=== PATIENT | female | born 1945 | race Caucasian/White ===

== ENCOUNTER 2016-07-24 11:40 | Outpatient (CLI) | payer MEDICARE | END 2016-07-24 11:41 | DX: N39.0 Urinary tract infection, site not specified (principal) ==

== ENCOUNTER 2017-01-18 19:17 | Emergency (ER) | payer MEDICARE ==
[2017-01-18 20:01] LABS: BILIRUBIN,URINE NEGATIVE (NEGATIVE); PH,URINE 5.5 PH (5.0-7.5)
[2017-01-18 20:03] LABS: UA w/ MICROSCOPIC CHARGE YES
[2017-01-18 20:12] LABS: UR CULTURE IF IND INDICATED; WBC,URINE 0-3 /HPF (0-5)
[2017-01-18 20:17] LABS: BASOPHILS # (AUTO) 0.1 10^3/uL (0.0-0.1); BASOPHILS % (AUTO) 0.8 %; EOSINOPHILS # (AUTO) 0.2 10^3/uL (0.0-0.7); EOSINOPHILS % (AUTO) 2.1 %; HCT - HEMATOCRIT 38.8 % (37.0-47.0); HGB - HEMOGLOBIN 13.2 g/dL (12.0-16.0); LYMPHOCYTES # (AUTO) 3.3 10^3/uL (1.5-3.5); MEAN CORPUSCULAR VOLUME 88.2 fL (81.0-99.0); MEAN PLATELET VOLUME 8.5 fL (7.9-10.8); MONOCYTES # (AUTO) 0.7 10^3/uL (0.0-1.0); MONOCYTES % (AUTO) 8.9 %; NEUTROPHILS % (AUTO) 48.2 %; RED CELL DISTRIBUTION WIDTH 13.4 % (12.0-15.0); UNCORRECTED WHITE BLOOD COUNT 8.4 x10^3/uL; WHITE BLOOD COUNT 8.4 x10^3/uL (4.8-10.8)
[2017-01-18 20:30] LABS: ALBUMIN/GLOBULIN RATIO 1.3 (1.0-2.2); BILIRUBIN,TOTAL 0.4 mg/dL (0.2-1.0); CALCIUM 9.1 mg/dL (8.5-10.3); CREATININE 0.6 mg/dL (0.4-1.0); POTASSIUM 3.5 mmol/L (3.5-5.0); TOTAL PROTEIN 7.2 g/dL (6.7-8.2)
[2017-01-18] MEDS ORDERED: IOPAMIDOL-300 100 ML VIAL IVP ONE (21:25)
--- NOTE | 2017-01-18 22:06 | ED Physician Documentation ---
PD HPI ABD PAIN - Stated complaint Stated Complaint: RLQ AB PX - Chief complaint Chief Complaint: Abd Pain - History obtained from History obtained from: Patient, Family - History of Present Illness Timing - onset: Today Timing - details: Gradual onset, Still present Quality: Cramping, Aching Location: RLQ Worsened by: Position, Palpation Associated symptoms: Fever, Nausea, Diarrhea, Loss of appetite. No: Vomiting, Hematemesis, Constipation, Melena, Near syncope / syncope Similar symptoms before: Has not had sx before Recently seen: Not recently seen - Additional information Additional information: Patient is a 71 year old female with no significant past medical history who is presenting to the emergency department for abdominal pain. according to the patient the pain started earlier today in her right lower quadrant. patient states that she had nausea, but no vomiting and one episode of diarrhea. patient also reports chills. Patient denies sick contacts, or recent travel. Review of Systems Constitutional: reports: Chills. denies: Myalgias Eyes: denies: Decreased vision Ears: denies: Ear pain, Drainage/discharge Nose: denies: Rhinorrhea / runny nose, Congestion Throat: denies: Dental pain / toothache, Sore throat Cardiac: denies: Chest pain / pressure Respiratory: denies: Cough, Wheezing GI: reports: Abdominal Pain, Nausea, Diarrhea. denies: Vomiting : denies: Dysuria, Frequency, Hesitancy Skin: denies: Rash, Lesions Neurologic: denies: Generalized weakness, Focal weakness Immunocompromised: denies: Immunocompromised PD PAST MEDICAL HISTORY - Past Medical History Cardiovascular: Hypertension Respiratory: Other Neuro: None DATABASE REPORT WRITER: None : None HEENT: None Psych: Depression, Anxiety Musculoskeletal: Osteoarthritis Derm: None - Past Surgical History General: Cholecystectomy, Colonoscopy - Present Medications Home Medications: Ambulatory Orders Medication Instructions Recorded Confirmed Cyclobenzaprine [Flexeril] 10 mg PO TID PRN #20 tablet 04/14/16 Ibuprofen [Motrin] 800 mg PO Q8H PRN #20 tablet 04/14/16 Dicyclomine [Bentyl] 10 mg PO QID #14 capsule 01/18/17 Ondansetron Odt [Zofran] 4 mg TL Q6H PRN #14 tablet 01/18/17 - Allergies Allergies/Adverse Reactions: Allergies Allergy/AdvReac Type Severity Reaction Status Date / Time amoxicillin trihydrate * Allergy Rash Verified 01/18/17 19:34 [From Augmentin] potassium clavulanate * Allergy Rash Verified 01/18/17 19:34 [From Augmentin] - Social History Does the pt smoke?: No Smoking Status: Never smoker Does the pt drink ETOH?: No Does the pt have substance abuse?: No - Immunizations Immunizations are current?: Yes - POLST Patient has POLST: No PD ED PE NORMAL - Vitals Vital signs reviewed: Yes - General General: Alert and oriented X 3, No acute distress - HEENT HEENT: Atraumatic, PERRL - Neck Neck: Supple, no meningeal sign - Cardiac Cardiac: RRR, No murmur - Respiratory Respiratory: No respiratory distress - Derm Derm: Normal color, Warm and dry, No rash - Extremities Extremities: No deformity - Neuro Neuro: Alert and oriented X 3, No motor deficit, No sensory deficit, Normal speech - Psych Psych: Normal mood, Normal affect PD ED PE EXPANDED - HEENT HEENT: Dry mucous membranes - Abdomen Abdomen: Tender to palpation, RLQ. No: Rebound, Guarding Results - Vitals Vitals: Vital Signs - 24 hr 01/18/17 01/18/17 01/18/17 19:32 19:45 21:36 Temperature 36.0 C L 36.3 C L 36.2 C L Heart Rate 67 75 57 L Respiratory 16 15 16 Rate Blood Pressure 163/79 H 196/85 H 176/72 H O2 Saturation 97 98 96 Oxygen O2 Source Room air - Labs Labs: Laboratory Tests 01/18/17 01/18/17 01/18/17 17:45 20:05 20:05 WBC 8.4 RBC 4.40 Hgb 13.2 Hct 38.8 MCV 88.2 MCH 30.0 MCHC 34.0 RDW 13.4 Plt Count 311 MPV 8.5 Neut # 4.0 Lymph # 3.3 [place] # 0.7 Eos # 0.2 Baso # 0.1 Absolute Nucleated RBC 0.00 Nucleated RBCs 0.0 Sodium 140 Potassium 3.5 Chloride 106 Carbon Dioxide 25 Anion Gap 9.0 BUN 14 Creatinine 0.6 Estimated GFR (MDRD) 99 Glucose 129 H Calcium 9.1 Total Bilirubin 0.4 AST 19 ALT 22 Alkaline Phosphatase 103 Total Protein 7.2 Albumin 4.1 Globulin 3.1 Albumin/Globulin Ratio 1.3 Lipase 53 H Urine Color YELLOW Urine Clarity HAZY Urine pH 5.5 Ur Specific [place] 1.020 Urine Protein NEGATIVE Urine Glucose (UA) NEGATIVE Urine Ketones NEGATIVE Urine Occult Blood TRACE-INTA Urine Nitrite NEGATIVE Urine Bilirubin NEGATIVE Urine Urobilinogen 0.2 (NORMAL) Ur Leukocyte Esterase TRACE H Urine RBC 0-5 Urine WBC 0-3 Ur Squamous Epith Cells FEW Squamous Urine Bacteria Rare Ur Microscopic Review INDICATED Urine Culture Comments INDICATED - Rads (name of study) ct abd pelvis Radiology: Final report received (diverticulosis but no diverticulitis, no appendicitis) PD MEDICAL DECISION MAKING - ED course Complexity details: reviewed old records, reviewed results, re-evaluated patient , considered differential, d/w patient, d/w family ED course: Patient was seen and examined at bedside. IV access was gained and labs were drawn. Imaging was ordered. When patient returned the results were reviewed. there no acute abnormalities on CT. patient was educated on her findings. patient required no further work up and was stable for discharge with outpatient follow up. Departure - Departure Disposition: 01 Home, Self Care Clinical Impression: Gastroenteritis Condition: Good Instructions: ED Gastroenteritis Viral Follow-Up: Talisha Meade MD [Primary Care Provider] - As Needed Prescriptions: Dicyclomine [Bentyl] 10 mg PO QID #14 capsule Ondansetron Odt [Zofran] 4 mg TL Q6H PRN #14 tablet PRN Reason: Nausea / Vomiting Comments: Your diagnostics today were within normal limits. Your symptoms are likely being caused by a gastroenteritis which should be self limited and get better in the next few days. Make sure you stay well hydrated with water and electrolyte solutions. You should follow up with your pmd if your symptoms persist. You may return to the emergency department at any time for new, worsening or uncontrollable symptoms.
--- NOTE | 2017-01-18 22:13 | CT Preliminary Report ---
Exam: CT Abdomen/Pelvis W/ IMPRESSION: 1. There is distal colon diverticulosis. No evidence of diverticulitis. 2. No evidence of appendicitis or bowel obstruction. 3. There is hepatic steatosis. No acute solid abdominal organ abnormalities are seen. [facility] SITE ID: [id number]
--- NOTE | 2017-01-18 22:15 | CT Report ---
EXAM: CT ABDOMEN AND PELVIS EXAM DATE: 01/18/2017 09:36 PM. CLINICAL HISTORY: Rlq pain, fever, chills. COMPARISONS: None. TECHNIQUE: Routine helical CT imaging was performed through the abdomen and pelvis. IV contrast: Yes. Enteric contrast: No. Reconstructions: Coronal and sagittal. In accordance with CT protocol optimization, one or more of the following dose reduction techniques w ere utilized for this exam: automated exposure control, adjustment of mA and/or KV based on patient s ize, or use of iterative reconstructive technique. FINDINGS: Lung Bases: Unremarkable. Liver: There is hepatic steatosis. Gallbladder/Bile Ducts: The gallbladder is surgically absent. No significant bile duct dilatation. Spleen: Normal. Pancreas: Normal. Adrenal Glands: Normal. Kidneys: Normal. No masses or hydronephrosis. Peritoneal Cavity/Bowel: No dilated or thick-walled bowel is seen. There is distal colon diverticulos is without evidence of diverticulitis. The appendix is well visualized and normal. No enlarged mesent raheem or retroperitoneal lymph nodes. No intraperitoneal free air or free fluid. Pelvic Organs: Normal. The bladder and visualized pelvic organs are within normal limits. Vasculature: No aneurysms or other significant abnormality. Bones: No significant abnormality. Other: None. IMPRESSION: 1. There is distal colon diverticulosis. No evidence of diverticulitis. 2. No evidence of appendicitis or bowel obstruction. 3. There is hepatic steatosis. No acute solid abdominal organ abnormalities are seen. [facility] Referring Provider Line: [phone] SITE ID: [id number]
[2017-01-18 22:42] VITALS: BP 128/71
== END 2017-01-18 22:30 | disposition home or self-care (01) ==
LOC: ED 19:17
DX: K52.9 Noninfective gastroenteritis and colitis, unspecified (principal); I10 Essential (primary) hypertension; M19.90 Unspecified osteoarthritis, unspecified site
CPT/HCPCS: 36415; 74177; 80053; 81001; 83690; 85025; 87086; 99283; 99284; Q9967; 81003

== ENCOUNTER 2017-01-30 09:55 | Outpatient (CLI) | payer MEDICARE ==
[2017-01-30 13:23] LABS: AMYLASE 77 U/L (28-100); LIPASE 46 U/L (22-51)
== END 2017-01-30 09:56 | disposition home or self-care (01) ==
LOC: LAB.WCP 09:55
PROVIDERS: ATTEND Family Medicine
DX: R74.8 Abnormal levels of other serum enzymes (principal); R10.31 Right lower quadrant pain
CPT/HCPCS: 36415; 82150; 83690; 87086

== ENCOUNTER 2017-02-01 12:57 | Outpatient (CLI) | payer MEDICARE ==
--- NOTE | 2017-02-01 14:08 | Ultrasound Report ---
EXAM: RENAL ULTRASOUND EXAM DATE: 02/01/2017 01:52 PM. CLINICAL HISTORY: Right flank pain COMPARISON: None. TECHNIQUE: Real-time scanning was performed with static images obtained. FINDINGS: Right Kidney: 10.3 x 5.5 x 5.2 cm. Minimal pelviectasis. Left Kidney: 10.4 x 4.8 x 4.2 cm. Normal echotexture with no stones, contour-deforming masses, or hyd ronephrosis. Bladder: Bilateral jets seen. The prevoid bladder volume was 332 cc. The postvoid bladder volume was 49 cc. Mildly increased echogenicity of the liver consistent with fatty infiltration. IMPRESSION: 1. Minimal right pelviectasis, otherwise unremarkable sonographic appearance of the kidneys. 2. Fatty infiltration of the liver. [facility] Referring Provider Line: [phone] SITE ID: [id number]
== END 2017-02-01 12:58 | disposition home or self-care (01) ==
LOC: DI 12:57
PROVIDERS: ATTEND Family Medicine
DX: R10.31 Right lower quadrant pain (principal); K76.0 Fatty (change of) liver, not elsewhere classified
CPT/HCPCS: 76770

== ENCOUNTER 2018-03-20 07:06 | Outpatient (CLI) | payer MEDICARE ==
[2018-03-20 14:40] LABS: BASOPHILS # (AUTO) 0.1 10^3/uL (0.0-0.1); BASOPHILS % (AUTO) 0.8 %; EOSINOPHILS # (AUTO) 0.1 10^3/uL (0.0-0.7); EOSINOPHILS % (AUTO) 1.5 %; HGB - HEMOGLOBIN 13.4 g/dL (12.0-16.0); LYMPHOCYTES % (AUTO) 28.6 %; MEAN CORPUSCULAR HEMOGLOBIN 29.7 pg (27.0-31.0); MEAN CORPUSCULAR HGB CONC 33.7 g/dL (32.0-36.0); MEAN CORPUSCULAR VOLUME 88.2 fL (81.0-99.0); MONOCYTES # (AUTO) 0.6 10^3/uL (0.0-1.0); MONOCYTES % (AUTO) 8.1 %; NEUTROPHILS # (AUTO) 4.3 10^3/uL (1.5-6.6); PLT - PLATELET COUNT 361 10^3/uL (130-450); RED BLOOD COUNT 4.52 10^6/uL (4.20-5.40); RED CELL DISTRIBUTION WIDTH 13.9 % (12.0-15.0)
[2018-03-20 15:35] LABS: ALBUMIN 4.2 g/dL (3.2-5.5); ALBUMIN/GLOBULIN RATIO 1.3 (1.0-2.2); ALKALINE PHOSPHATASE 107 IU/L (42-121); ALT ALANINE AMINOTRANSFERASE 21 IU/L (10-60); AST ASPARTATE AMINOTRANSFERASE 20 IU/L (10-42); BILIRUBIN,TOTAL 0.4 mg/dL (0.2-1.0); BUN - BLOOD UREA NITROGEN 13 mg/dL (6-20); CALCIUM 9.1 mg/dL (8.5-10.3); CARBON DIOXIDE - CO2 24 mmol/L (21-32); CHLORIDE 102 mmol/L (101-111); CHOL/HDL RATIO 3.4 (<4.4); CHOLESTEROL 166 mg/dL; CREATININE 0.7 mg/dL (0.4-1.0); GFR - MDRD 83 (>89); GLUCOSE 108 mg/dL (70-100); HDL CHOLESTEROL 49 mg/dL; LDL CHOLESTEROL,CALCULATED 79 mg/dL; LDL/HDL RATIO 1.6 (<4.4); SODIUM 137 mmol/L (135-145); TOTAL PROTEIN 7.5 g/dL (6.7-8.2); VLDL CHOLESTEROL 38 mg/dL
[2018-03-20 16:18] LABS: HB2 TOTAL 14.2 g/dL; HEMOGLOBIN A1C 0.63 g/dL; HEMOGLOBIN A1C % 6.2 % (4.6-6.2)
== END 2018-03-20 07:07 | disposition home or self-care (01) ==
LOC: LAB.WCP 07:06
PROVIDERS: ATTEND Family Medicine
DX: I10 Essential (primary) hypertension (principal); E78.5 Hyperlipidemia, unspecified; R73.9 Hyperglycemia, unspecified; R94.6 Abnormal results of thyroid function studies
CPT/HCPCS: 36415; 80053; 80061; 83036; 83721; 84443; 85025

== ENCOUNTER 2018-04-08 13:42 | Outpatient (CLI) | payer MEDICARE ==
[2018-04-08] MEDS ORDERED: REGADENOSON 0.4 MG/5 ML SYRINGE IVP ONE ×2 (14:54→16:38)
--- NOTE | 2018-04-08 18:03 | CARDIAC PROCEDURE NOTE ---
DATE OF SERVICE: 04/08/2018 Physician: Sahara Lyon MD, [facility] INDICATION: Left bundle branch block, chest pain. CARDIAC RISK FACTORS: Family history of heart disease, hyperlipidemia, hypertension, postmenopausal status. SUMMARY: After signing informed consent, the patient underwent a pharmaceutical stress test using Lexiscan and nuclear myocardial perfusion imaging. Resting heart rate 63, peak heart rate 99. Resting blood pressure 160/80. Peak blood pressure 130/70, which recovered to 140/65 before discharge. Lexiscan was infused per protocol. The patient developed chest pressure that was different than the feeling she has ever had before, brief nausea, flushing, headache and shortness of breath. All symptoms subsided spontaneously by 4-5 minutes. RESTING EKG: Normal sinus rhythm, left bundle branch block. EKG AT PEAK: Similar left bundle branch block, therefore cannot comment on ST segments or T waves. SUMMARY: 1. Indeterminate EKG changes due to underlying left bundle branch block, during this pharmaceutical stress test. 2. Nuclear images reported separately to go up and before. cc: Talisha Meade MD TD: 04/08/2018 16:53 MTDD
--- NOTE | 2018-04-09 09:39 | Nuclear Medicine Report ---
Reason: LT BUNDLE BRANCH BLOCK, CHEST PAIN Procedure Date: 04/08/2018 Accession Number: [id number] / [id number] Procedure: NM - Myocardial Perfusion STR/RST CPT Code: FULL RESULT: EXAM: SINGLE-ISOTOPE PHARMACOLOGICAL STRESS TEST WITH REGADENOSON. SINGLE-ISOTOPE AND ONE-DAY REST/STRESS MYOCARDIAL PERFUSION SCANS WITH TOMOGRAPHIC IMAGING, QUANTITATIVE ANALYSIS, WALL MOTION ANALYSIS AND CALCULATION OF EJECTION FRACTION. EXAM DATE: 04/08/2018 05:31 PM. CLINICAL HISTORY: LT BUNDLE BRANCH BLOCK, CHEST PAIN. COMPARISON: None available. TECHNIQUE: After the intravenous administration of 10 mCi of Tc-99m sestamibi, a rest myocardial perfusion scan was done with tomography. Motion correction was applied when appropriate. After an appropriate delay, pharmacological stress was performed with the infusion of 0.4 mg regadenoson per protocol. According to protocol, 43.2 mCi of Tc-99m sestamibi was injected for stress myocardial perfusion scan. Motion correction was applied when appropriate. Gated tomographic images were obtained for wall motion analysis and computation of left ventricular ejection fraction. FINDINGS: No convincing fixed or reversible perfusion defects are evident. There appears to be breast attenuation artifact in the distal anteroseptal wall. Wall motion analysis demonstrates no focal wall motion abnormality. The left ventricular end-diastolic volume is 48 cc. The left ventricular end-systolic volume is 12 cc. The left ventricular ejection fraction is calculated to be 75%. IMPRESSION: 1. No scintigraphic findings to indicate myocardial ischemia. Negative for infarct. 2. Left ventricular ejection fraction of 75%. 3. Normal segmental and global wall motion. 4. Normal left ventricular cavity size, no change with stress. [facility] ADDENDUM: 04/09/18 10:50 Computer analysis: Summed stress score 4 Summed rest score 4 Summed difference score 0 Based on computer analysis, mildly abnormal study with no ischemia.
== END 2018-04-08 13:43 | disposition home or self-care (01) ==
LOC: DI 13:42
PROVIDERS: ATTEND Family Medicine
DX: I44.7 Left bundle-branch block, unspecified (principal); R07.9 Chest pain, unspecified; Z82.49 Family history of ischemic heart disease and other diseases of the circulatory system; E78.5 Hyperlipidemia, unspecified; I10 Essential (primary) hypertension; Z78.0 Asymptomatic menopausal state
CPT/HCPCS: 78452; 93017; A9500

== ENCOUNTER 2018-04-27 10:28 | Outpatient (CLI) | payer MEDICARE | END 2018-04-27 10:29 | disposition home or self-care (01) | LOC: LAB.WCP 10:28 | PROVIDERS: ATTEND Family Medicine | DX: R41.3 Other amnesia (principal) | CPT/HCPCS: 36415; 82607; 82746 ==

== ENCOUNTER 2018-06-23 09:33 | Outpatient (CLI) | payer MEDICARE | END 2018-06-23 09:34 | disposition home or self-care (01) | LOC: SC 09:33 | PROVIDERS: ATTEND Internal Medicine Pulmonary Disease | DX: R06.81 Apnea, not elsewhere classified (principal); G47.10 Hypersomnia, unspecified; R06.83 Snoring; G47.8 Other sleep disorders | CPT/HCPCS: 99203; G0463; 99212 ==

== ENCOUNTER → 2018-07-11 | Outpatient (CLI) | payer MEDICARE | LOC: SC 19:30 | PROVIDERS: ATTEND Internal Medicine Pulmonary Disease | DX: G47.33 Obstructive sleep apnea (adult) (pediatric) (principal) | CPT/HCPCS: G0399 ×2; 95806 ==

== ENCOUNTER 2018-08-12 08:14 | Outpatient (CLI) | payer MEDICARE | END 2018-08-12 08:15 | disposition home or self-care (01) | LOC: SC 08:14 | PROVIDERS: ATTEND Nurse Practitioner Family | DX: G47.33 Obstructive sleep apnea (adult) (pediatric) (principal) | CPT/HCPCS: 99215; G0463; 99212 ==

== ENCOUNTER 2018-12-14 08:00 | Outpatient (CLI) | payer MEDICARE ==
[2018-12-14 12:34] LABS: BASOPHILS # (AUTO) 0.1 10^3/uL (0.0-0.1); BASOPHILS % (AUTO) 0.9 %; EOSINOPHILS # (AUTO) 0.1 10^3/uL (0.0-0.7); EOSINOPHILS % (AUTO) 1.5 %; HGB - HEMOGLOBIN 13.7 g/dL (12.0-16.0); LYMPHOCYTES # (AUTO) 2.2 10^3/uL (1.5-3.5); LYMPHOCYTES % (AUTO) 34.7 %; MEAN CORPUSCULAR HEMOGLOBIN 29.5 pg (27.0-31.0); MEAN CORPUSCULAR HGB CONC 32.2 g/dL (32.0-36.0); MEAN CORPUSCULAR VOLUME 91.6 fL (81.0-99.0); MEAN PLATELET VOLUME 10.1 fL (7.9-10.8); MONOCYTES # (AUTO) 0.6 10^3/uL (0.0-1.0); NEUTROPHILS # (AUTO) 3.5 10^3/uL (1.5-6.6); NEUTROPHILS % (AUTO) 53.6 %; PLT - PLATELET COUNT 381 10^3/uL (130-450); RED BLOOD COUNT 4.64 10^6/uL (4.20-5.40); RED CELL DISTRIBUTION WIDTH 13.1 % (12.0-15.0); WHITE BLOOD COUNT 6.5 x10^3/uL (4.8-10.8)
[2018-12-14 12:59] LABS: ALBUMIN 4.2 g/dL (3.2-5.5); ALBUMIN/GLOBULIN RATIO 1.3 (1.0-2.2); ALKALINE PHOSPHATASE 106 IU/L (42-121); ALT ALANINE AMINOTRANSFERASE 23 IU/L (10-60); AST ASPARTATE AMINOTRANSFERASE 18 IU/L (10-42); BILIRUBIN,TOTAL 0.5 mg/dL (0.2-1.0); BUN - BLOOD UREA NITROGEN 12 mg/dL (6-20); CALCIUM 9.2 mg/dL (8.5-10.3); CARBON DIOXIDE - CO2 23 mmol/L (21-32); CHLORIDE 105 mmol/L (101-111); CHOL/HDL RATIO 4.4 (<4.4); CHOLESTEROL 186 mg/dL; CREATININE 0.8 mg/dL (0.4-1.0); GFR - MDRD 71 (>89); GLUCOSE 104 mg/dL (70-100); HDL CHOLESTEROL 42 mg/dL; LDL CHOLESTEROL,CALCULATED 103 mg/dL; LDL/HDL RATIO 2.5 (<4.4); SODIUM 138 mmol/L (135-145); TOTAL PROTEIN 7.5 g/dL (6.7-8.2); VLDL CHOLESTEROL 41 mg/dL
[2018-12-14 13:23] LABS: HB2 TOTAL 15.5 g/dL; HEMOGLOBIN A1C 0.71 g/dL; HEMOGLOBIN A1C % 6.3 % (4.6-6.2)
== END 2018-12-14 23:59 | disposition home or self-care (01) ==
LOC: LAB.WCP 08:00
PROVIDERS: ATTEND Family Medicine
DX: I10 Essential (primary) hypertension (principal); E87.5 Hyperkalemia; R73.9 Hyperglycemia, unspecified; R94.6 Abnormal results of thyroid function studies
CPT/HCPCS: 36415; 80053; 80061; 83036; 83721; 84443; 85025

== ENCOUNTER 2019-03-30 08:00 | Outpatient (CLI) | payer MEDICARE ==
[2019-03-30 12:20] LABS: BASOPHILS # (AUTO) 0.1 10^3/uL (0.0-0.1); BASOPHILS % (AUTO) 0.9 %; EOSINOPHILS # (AUTO) 0.1 10^3/uL (0.0-0.7); EOSINOPHILS % (AUTO) 1.5 %; HGB - HEMOGLOBIN 13.2 g/dL (12.0-16.0); LYMPHOCYTES # (AUTO) 2.2 10^3/uL (1.5-3.5); LYMPHOCYTES % (AUTO) 32.4 %; MEAN CORPUSCULAR HEMOGLOBIN 29.3 pg (27.0-31.0); MEAN CORPUSCULAR HGB CONC 31.7 g/dL (32.0-36.0); MEAN CORPUSCULAR VOLUME 92.5 fL (81.0-99.0); MEAN PLATELET VOLUME 10.3 fL (7.9-10.8); MONOCYTES # (AUTO) 0.5 10^3/uL (0.0-1.0); MONOCYTES % (AUTO) 7.3 %; NEUTROPHILS # (AUTO) 3.9 10^3/uL (1.5-6.6); NEUTROPHILS % (AUTO) 57.6 %; PLT - PLATELET COUNT 340 10^3/uL (130-450); RED BLOOD COUNT 4.51 10^6/uL (4.20-5.40); RED CELL DISTRIBUTION WIDTH 13.3 % (12.0-15.0); WHITE BLOOD COUNT 6.8 x10^3/uL (4.8-10.8)
[2019-03-30 12:42] LABS: HB2 TOTAL 13.7 g/dL; HEMOGLOBIN A1C 0.61 g/dL; HEMOGLOBIN A1C % 6.2 % (4.6-6.2)
[2019-03-30 12:45] LABS: ALBUMIN 4.2 g/dL (3.2-5.5); ALBUMIN/GLOBULIN RATIO 1.4 (1.0-2.2); ALKALINE PHOSPHATASE 94 IU/L (42-121); ALT ALANINE AMINOTRANSFERASE 16 IU/L (10-60); AST ASPARTATE AMINOTRANSFERASE 14 IU/L (10-42); BILIRUBIN,TOTAL 0.6 mg/dL (0.2-1.0); BUN - BLOOD UREA NITROGEN 13 mg/dL (6-20); CARBON DIOXIDE - CO2 27 mmol/L (21-32); CHLORIDE 104 mmol/L (101-111); CHOL/HDL RATIO 3.6 (<4.4); CHOLESTEROL 154 mg/dL; CREATININE 0.7 mg/dL (0.4-1.0); GFR - MDRD 82 (>89); GLUCOSE 101 mg/dL (70-100); HDL CHOLESTEROL 43 mg/dL; LDL CHOLESTEROL,CALCULATED 75 mg/dL; LDL/HDL RATIO 1.7 (<4.4); SODIUM 140 mmol/L (135-145); TOTAL PROTEIN 7.2 g/dL (6.7-8.2); VLDL CHOLESTEROL 36 mg/dL
== END 2019-03-30 23:59 | disposition home or self-care (01) ==
LOC: LAB.WCP 08:00
PROVIDERS: ATTEND Physician Assistant
DX: E78.5 Hyperlipidemia, unspecified (principal); R73.9 Hyperglycemia, unspecified; I10 Essential (primary) hypertension
CPT/HCPCS: 36415; 80053; 80061; 83036; 83721; 85025

== ENCOUNTER 2019-04-16 10:09 | Outpatient (CLI) | payer MEDICARE ==
--- NOTE | 2019-04-19 10:05 | DEXA Report ---
Reason: POSTMENOPAUSAL Procedure Date: 04/16/2019 Accession Number: [id number] / [id number] Procedure: DEX - Dexa Spine and/or Hip CPT Code: Final Report FULL RESULT: EXAM: Dexa Spine and/or Hip DATE: 04/16/2019 11:52 AM CLINICAL HISTORY: POSTMENOPAUSAL TECHNIQUE: Dual energy x-ray absorptiometry (DXA) was performed on a Skydeck System. Regions measured are the AP Spine, femoral neck, and if needed forearm. COMPARISON: None. In accordance with the International Society for Clinical Densitometry (ISCD) guidelines, data from previous exams may be reanalyzed using current recommendations and techniques. This is done to allow a more accurate basis for comparison with the current study. FINDINGS: The data for the lumbar spine is as follows: BMD (g/cm/cm) T-SCORE Z-SCORE REGION L1 0.868 -2.2 -0.8 L2 0.955 -2.0 -0.7 L3 1.076 -1.0 0.3 L4 1.237 0.3 1.7 TOTAL 1.050 -1.6 -0.2 NOTE: All evaluable vertebrae are used for classification The data for the hip is as follows: BMD (g/cm/cm) T-SCORE Z-SCORE REGION Neck 0.772 -1.9 -0.3 TOTAL 0.934 -0.6 0.7 NOTE: The femoral neck or total proximal femur, whichever is lowest, is used for classification. IMPRESSION: THE WHO CLASSIFICATION BASED ON THE INTERNATIONAL REFERENCE STANDARD IS OSTEOPENIA. THE FRACTURE RISK IS INCREASED. RECOMMENDATION: Patients with diagnosis of osteoporosis or osteopenia should have regular bone mineral density assessment. For those eligible for Medicare, routine testing is allowed once every 2 years. Testing frequency can be increased for patients who have rapidly progressing disease or for those who are receiving medical therapy to restore bone mass. COMMENT: World Health Organization (WHO) definitions for osteoporosis and osteopenia: NORMAL BMD: T-score at -1.0 or higher, fracture risk is low OSTEOPENIA BMD: T-score between -1.0 and -2.5, fracture risk is increased. OSTEOPOROSIS BMD: T-score at -2.5 or lower, fracture risk is high. National Osteoporosis Foundation recommends: 1. Obtain adequate dietary calcium (at least 1200 mg per day) and vitamin D (400-800 international units per day). 2. Participate, as appropriate, in regular weightbearing and muscle-strengthening exercise. 3. Avoid tobacco use and reduce alcohol and caffeine intake. 4. For more detailed information see the website at www.NOF.org.
== END 2019-04-16 10:10 | disposition home or self-care (01) ==
LOC: DI 10:09
PROVIDERS: ATTEND Physician Assistant
DX: M85.89 Other specified disorders of bone density and structure, multiple sites (principal)
CPT/HCPCS: 77080

== ENCOUNTER 2019-05-12 12:50 | Outpatient (CLI) | payer MEDICARE ==
[2019-05-12 13:41] VITALS: BP 150/72
--- NOTE | 2019-05-12 13:41 | SLEEP CARE CONSULTATION ---
Information from patient questionnaire entered by Galina Torres. I have reviewed and concur with the information entered by Galina Torres. This document represents the service I personally performed and the decisions made by me, Rocio Vieira, RN, MSN, SALES SECRETARY. History of Present Illness Previous diagnosis: Moderate, Obstructive Sleep Apnea-Hypopnea Syndrome AHI: 20 Reason for follow up: other (requalify) HPI additional information: She was diagnosed with moderate obstructive sleep apnea with a HST home sleep study completed 07/11/18 and had follow up to inform her of findings August 12 2018. At that time she agreed to start autoCPAP and and order was written to start therapy . However, it was not until 2 months later that the [facility] she chose contacted her to set up. She did not think to contact us as during that time, her grandson was just diagnosed with osteosarcoma and ended up having a amputation and chemotherapy and she was busy assisting with her grandson and family during this time. He is now doing well and she is ready to resume her treatment of apnea. She was advised until she could get treated to avoid supine sleep as her apnea more severe in that position but she forgot. Review of current sleep history is bedtime is 9:30 -10pm and it takes about 30- 60 minutes to fall asleep. She continued to report snoring loudly and spouse has to wear ear plugs to share bed. He continues to observe her to have pauses in her breathing. She continues to wake 2-3 times during the night. Sometimes she awakens to gasping but most of time she awakens to unknown. She is also frequently tossing and turning in her sleep. No sleep walking or sleep talking. Sometimes she will remember dreams. She wakes about 7am and does not feel refreshed. She also reports sleepy and fatigued during the day. She does not have drowsiness while driving. She continues to nap 1-2 hours a day. She denies sleep paralysis, cataplexy symptoms, restless leg symptoms or impaired cognition. No change in medical condition since June history as reviewed. No change in weight. Subjective Initial [place] Sleepiness Scale score: 14 Current [place] Sleepiness Scale score: 14 Allergies and Home Medications Known drug allergies: Yes (augmentin) Home medication list reviewed: Yes Allergy and home medication list: Atorvastatin 10mg tab one daily Fluoxetine 40mg cap one daily Lisinopril 20mg tab one daily Metoprolol Succinate ER 50mg tab one daily Aspirin 81mg tab one daily Review of Systems Review of systems same as previous: Yes Physical Exam Blood Pressure: 150/72 Cuff size: regular Heart Rate: 61 O2 Saturation: 96 Height: 5 ft 3.5 in Weight: 165 lb 12.8 oz Body Mass Index: 28.9 BMI Classification: Overweight Neck circumference: 14 Nostrils: partially obstructed Turbinates: swollen Septum: midline Mouth and throat: narrow oropharynx Soft palate: long Hard palate: normal Uvula: normal Uvula visualization: 25% Mallampati Class III Tongue: enlarged in size with teeth brown on lateral edges Tonsils: small Chin and jaw: normal size and position Neck: normal w/o lymphadenopathy or thyromegaly Heart: regular rate and rhythm Lungs: clear bilaterally Extremities: no edema or clubbing Impression and Plan 1. Obstructive Sleep Apnea-Hypopnea Syndrome, as previously diagnosed, never treated due to delay in response to appointed DME set up and personal family emergency as noted in history. She would like to pursue treatment now. Symptoms remain the same with same weight. She continues to have loud and irregular snoring, observed cessation of breath while asleep, gasping or choking in sleep, frequent awakening during the night, unrefreshed sleep, fatigue and excessive d aytime sleepiness. Narrow oropharynx and obesity are common predisposing factors for obstructive sleep apnea-hypopnea syndrome. I recommend proceeding to home sleep study for re-evaluation if needed to re qualify for treatment of her apnea to confirm the diagnosis and to assess severity. If the patient has significant sleep disordered breathing, a manual CPAP titration study will also be performed to find the optimal treatment pressure. I informed the patient of what the sleep studies involve and after some discussion, obtained agreement to proceed. The pathophysiology of obstructive sleep apnea-hypopnea syndrome was discussed with the patient and health risks of cardiovascular and cerebrovascular disease if not treated. AASM brochure for obstructive sleep apnea-hypopnea syndrome given and reviewed. Risks of drowsy driving discussed in detail and patient advised to avoid long distance driving and to truss puller helper at the first sign of drowsiness. Patient agreed to plan. * Schedule home sleep study ( HST). * Avoid long distance driving or driving when feeling sleepy. * Avoid alcohol, sedative and muscle relaxant around bedtime. * Attempt to lose weight. * Review instructions provided by trained office staff on how to prepare for the sleep study. * Return for follow-up after sleep study completed. I spent 100% of this 30 minute visit face to face with the patient with greater than 50% of this was spent time counseling the patient and coordination of care.
== END 2019-05-12 12:51 | disposition home or self-care (01) ==
LOC: SC 12:50
PROVIDERS: ATTEND Nurse Practitioner Family
DX: G47.33 Obstructive sleep apnea (adult) (pediatric) (principal)
CPT/HCPCS: 99214; G0463; 99212

== ENCOUNTER 2019-05-25 09:20 | Outpatient (CLI) | payer MEDICARE ==
--- NOTE | 2019-05-25 14:25 | Mammography Report ---
Reason: ROUTINE MAMMO Procedure Date: 05/25/2019 Accession Number: [id number] / [id number] Procedure: MGN - Screening Mammo Dig Bilat CPT Code: Final Report FULL RESULT: EXAM: Screening Mammo Dig Bilat DATE: 05/25/2019 9:36 AM CLINICAL HISTORY: Routine screening TECHNIQUE: (B) - Bilateral CC and MLO views were obtained. COMPARISON: 04/22/2016, 04/19/2015, 05/24/2014, 03/02/2013 PARENCHYMAL PATTERN: (A) - The breasts demonstrate scattered fibroglandular densities bilaterally. FINDINGS: No significant interval change. There are no suspicious masses, calcifications, or areas of distortion. Few scattered benign-appearing calcifications are noted. IMPRESSION: Negative examination. BI-RADS category 1. RECOMMENDATION: (ANNUAL) - Recommend routine annual screening mammography. BI-RADS CATEGORY: (1) - Negative. STANDARD QUALIFYING STATEMENTS: 1. This examination was not reviewed with the aid of Computer-Aided Detection (CAD). 2. A negative or benign imaging report should not preclude biopsy if clinically suspicious findings are present. 3. Dense breasts may obscure an underlying neoplasm. 4. This examination was reviewed without the aid of 3D breast imaging (tomosynthesis).
== END 2019-05-25 09:21 | disposition home or self-care (01) ==
LOC: DI.N 09:20
DX: Z12.31 Encounter for screening mammogram for malignant neoplasm of breast (principal)
CPT/HCPCS: 77067

== ENCOUNTER 2020-05-17 07:00 | Outpatient (CLI) | payer MEDICARE ==
[2020-05-17 12:11] LABS: BASOPHILS # (AUTO) 0.1 10^3/uL (0.0-0.1); BASOPHILS % (AUTO) 0.9 %; EOSINOPHILS # (AUTO) 0.1 10^3/uL (0.0-0.7); EOSINOPHILS % (AUTO) 1.3 %; HGB - HEMOGLOBIN 13.4 g/dL (12.0-16.0); LYMPHOCYTES # (AUTO) 2.1 10^3/uL (1.5-3.5); MEAN CORPUSCULAR HEMOGLOBIN 28.9 pg (27.0-31.0); MEAN CORPUSCULAR HGB CONC 31.7 g/dL (32.0-36.0); MEAN CORPUSCULAR VOLUME 91.4 fL (81.0-99.0); MEAN PLATELET VOLUME 10.4 fL (7.9-10.8); MONOCYTES # (AUTO) 0.5 10^3/uL (0.0-1.0); MONOCYTES % (AUTO) 8.5 %; NEUTROPHILS # (AUTO) 3.6 10^3/uL (1.5-6.6); PLT - PLATELET COUNT 359 10^3/uL (130-450); RED BLOOD COUNT 4.63 10^6/uL (4.20-5.40); RED CELL DISTRIBUTION WIDTH 13.2 % (12.0-15.0); WHITE BLOOD COUNT 6.3 x10^3/uL (4.8-10.8)
[2020-05-17 12:25] LABS: ALBUMIN 4.1 g/dL (3.2-5.5); ALBUMIN/GLOBULIN RATIO 1.4 (1.0-2.2); ALKALINE PHOSPHATASE 98 IU/L (42-121); ALT ALANINE AMINOTRANSFERASE 17 IU/L (10-60); AST ASPARTATE AMINOTRANSFERASE 16 IU/L (10-42); BILIRUBIN,TOTAL 0.9 mg/dL (0.2-1.0); BUN - BLOOD UREA NITROGEN 14 mg/dL (6-20); CALCIUM 9.2 mg/dL (8.5-10.3); CARBON DIOXIDE - CO2 25 mmol/L (21-32); CHLORIDE 102 mmol/L (101-111); CHOL/HDL RATIO 3.2 (<4.4); CHOLESTEROL 153 mg/dL; CREATININE 0.7 mg/dL (0.4-1.0); GLUCOSE 99 mg/dL (70-100); HDL CHOLESTEROL 48 mg/dL; LDL CHOLESTEROL,CALCULATED 75 mg/dL; LDL/HDL RATIO 1.6 (<4.4); SODIUM 136 mmol/L (135-145); TOTAL PROTEIN 7.1 g/dL (6.7-8.2); VLDL CHOLESTEROL 30 mg/dL
[2020-05-17 12:31] LABS: HEMOGLOBIN A1c% 6.1 % (4.27-6.07)
== END 2020-05-17 23:59 | disposition home or self-care (01) ==
LOC: LAB.WCP 07:00
PROVIDERS: ATTEND Physician Assistant
DX: I10 Essential (primary) hypertension (principal); R73.9 Hyperglycemia, unspecified; E78.5 Hyperlipidemia, unspecified; R94.6 Abnormal results of thyroid function studies; R53.83 Other fatigue
CPT/HCPCS: 36415; 80053; 80061; 83036; 83721; 84443; 85025

== ENCOUNTER 2020-06-30 08:11 | Outpatient (CLI) | payer MEDICARE ==
--- NOTE | 2020-06-30 10:28 | MRI Report ---
PROCEDURE: Shoulder RT W/O INDICATIONS: RT SHOULDER PAIN TECHNIQUE: Noncontrast oblique coronal T2 fast spin echo with fat saturation, oblique sagittal T1 spin echo and T2 fast spin echo with fat saturation, axial T1 spin echo and T2 fast spin echo with fat saturation t hrough the shoulder. COMPARISON: None. FINDINGS: Image quality: Excellent. Rotator cuff: There is full-thickness tearing of the entire supraspinatus tendon which demonstrates m edial retraction, and atrophy. There is moderate grade intrasubstance and articular surface tearing o f the anterior and mid infraspinatus tendon at the humeral insertion site, demonstrating musculotendi nous junction extension. Low-grade partial-thickness intrasubstance tearing of the posterior infraspi natus tendon at the musculotendinous junction. Teres minor is intact. Mild diffuse T2 signal elevatio n within the subscapularis tendon is present, indicating tendinopathy. Superimposed moderate grade pa rtial-thickness articular surface tearing of the upper subscapularis tendon at the humeral insertion site extending to the musculotendinous junction is present. Bones and bursae: No bone marrow contusions or fractures. Moderate acromioclavicular joint degenerat ion. The acromion demonstrates conventional anatomy, without an os acromiale. No pathologic subacro mial/subdeltoid bursal fluid is present. Capsule and soft tissues: Moderate glenohumeral joint effusion. In the absence of intra-articular con trast, the labrum and glenohumeral ligaments appear intact. The long head of the biceps tendon demon strates normal location and moderate grade tearing. The rotator interval appears normal, without fibr osis. The coracohumeral ligament is normal in thickness. IMPRESSION: 1. Full-thickness tearing of the super spinatus tendon associated with medial retraction and atrophy. 2. Partial-thickness tearing of the infraspinatus and subscapularis tendons. 3. Partial-thickness biceps tendon tear. 4. Acromioclavicular joint osteoarthritis. Reviewed by: Tom Bush MD on 06/30/2020 10:26 AM PST Approved by: Tom Bush MD on 06/30/2020 10:26 AM PST Station ID: [id number]
== END 2020-06-30 08:12 | disposition home or self-care (01) ==
LOC: DI 08:11
PROVIDERS: ATTEND Physician Assistant
DX: S46.021A Laceration of muscle(s) and tendon(s) of the rotator cuff of right shoulder, initial encounter (principal); S46.821A Laceration of other muscles, fascia and tendons at shoulder and upper arm level, right arm, initial encounter; S46.121A Laceration of muscle, fascia and tendon of long head of biceps, right arm, initial encounter; M19.011 Primary osteoarthritis, right shoulder

== ENCOUNTER 2021-03-29 08:00 | Outpatient (CLI) | payer MEDICARE ==
[2021-03-29 12:52] LABS: ALBUMIN 4.3 g/dL (3.2-5.5); ALBUMIN/GLOBULIN RATIO 1.4 (1.0-2.2); ALKALINE PHOSPHATASE 104 IU/L (42-121); ALT ALANINE AMINOTRANSFERASE 16 IU/L (10-60); AMYLASE 66 U/L (28-100); AST ASPARTATE AMINOTRANSFERASE 14 IU/L (10-42); BILIRUBIN,TOTAL 0.6 mg/dL (0.2-1.0); BUN - BLOOD UREA NITROGEN 13 mg/dL (6-20); CALCIUM 9.3 mg/dL (8.5-10.3); CARBON DIOXIDE - CO2 25 mmol/L (21-32); CHLORIDE 105 mmol/L (101-111); CHOL/HDL RATIO 3.5 (<4.4); CHOLESTEROL 168 mg/dL; CREATININE 0.7 mg/dL (0.4-1.0); GFR - MDRD 82 (>89); GLUCOSE 105 mg/dL (70-100); HDL CHOLESTEROL 48 mg/dL; LDL CHOLESTEROL,CALCULATED 86 mg/dL; LDL/HDL RATIO 1.8 (<4.4); LIPASE 48 U/L (22-51); POTASSIUM 4.1 mmol/L (3.5-5.0); SODIUM 141 mmol/L (135-145); TOTAL PROTEIN 7.4 g/dL (6.7-8.2); TRIGLYCERIDES 169 mg/dL; VLDL CHOLESTEROL 34 mg/dL
[2021-03-29 13:03] LABS: THYROID STIMULATING HORMONE 1.66 uIU/mL (0.34-5.60)
[2021-03-29 13:06] LABS: BASOPHILS # (AUTO) 0.1 10^3/uL (0.0-0.1); BASOPHILS % (AUTO) 0.9 %; EOSINOPHILS # (AUTO) 0.1 10^3/uL (0.0-0.7); EOSINOPHILS % (AUTO) 1.4 %; HCT - HEMATOCRIT 42.9 % (37.0-47.0); HGB - HEMOGLOBIN 13.5 g/dL (12.0-16.0); LYMPHOCYTES # (AUTO) 1.9 10^3/uL (1.5-3.5); LYMPHOCYTES % (AUTO) 33.2 %; MEAN CORPUSCULAR HEMOGLOBIN 28.4 pg (27.0-31.0); MEAN CORPUSCULAR HGB CONC 31.5 g/dL (32.0-36.0); MEAN CORPUSCULAR VOLUME 90.3 fL (81.0-99.0); MEAN PLATELET VOLUME 10.3 fL (7.9-10.8); MONOCYTES # (AUTO) 0.5 10^3/uL (0.0-1.0); MONOCYTES % (AUTO) 8.9 %; NEUTROPHILS # (AUTO) 3.2 10^3/uL (1.5-6.6); NEUTROPHILS % (AUTO) 55.3 %; PLT - PLATELET COUNT 376 10^3/uL (130-450); RED BLOOD COUNT 4.75 10^6/uL (4.20-5.40); RED CELL DISTRIBUTION WIDTH 13.1 % (12.0-15.0); WHITE BLOOD COUNT 5.8 x10^3/uL (4.8-10.8)
== END 2021-03-29 23:55 | disposition home or self-care (01) ==
LOC: LAB.WCP 08:00
PROVIDERS: ATTEND Nurse Practitioner
DX: I10 Essential (primary) hypertension (principal); R74.8 Abnormal levels of other serum enzymes; R53.83 Other fatigue
CPT/HCPCS: 36415; 80053; 80061; 81001; 82150; 82607; 83690; 83721; 84443; 85025; 87086

== ENCOUNTER 2021-03-30 09:50 | Outpatient (CLI) | payer MEDICARE ==
[2021-03-30 12:34] LABS: BILIRUBIN,URINE NEGATIVE (NEGATIVE); GLUCOSE, URINE (UA) NEGATIVE (NEGATIVE); KETONES,URINE (UA) NEGATIVE (NEGATIVE); LEUKOCYTE ESTERASE, URINE NEGATIVE (NEGATIVE); NITRITE,URINE NEGATIVE (NEGATIVE); OCCULT BLOOD,URINE NEGATIVE (NEGATIVE); PROTEIN,URINE NEGATIVE (NEGATIVE); UROBILINOGEN,URINE 0.2 (NORMAL) E.U./dL (NORMAL)
[2021-03-30 12:42] LABS: CLARITY,URINE CLEAR (CLEAR)
[2021-03-30 13:04] LABS: BACTERIA,URINE None Seen /HPF (None Seen); RBC,URINE None Seen /HPF (0-5); SQUAMOUS EPITHELIAL CELL,UR FEW Squamous (<= Few); WBC,URINE 0-3 /HPF (0-5)
== END 2021-03-30 23:59 | disposition home or self-care (01) ==
LOC: LAB.WCP 09:50
PROVIDERS: ATTEND Nurse Practitioner
DX: I10 Essential (primary) hypertension (principal)
CPT/HCPCS: 81001; 87086

== ENCOUNTER 2021-04-04 08:43 | Outpatient (CLI) | payer MEDICARE ==
[2021-04-04 09:23] VITALS: BP 132/62
--- NOTE | 2021-04-04 09:23 | SLEEP CARE CONSULTATION ---
Information from patient questionnaire entered by Lisandra Bhagat. I have reviewed and concur with the information entered by Lisandra Bhagat. This document represents the service I personally performed and the decisions made by , Bhumi Sosa ARNP. History of Present Illness Service Date and Time: 04/04/2021 0843 Previous diagnosis: Moderate, Obstructive Sleep Apnea-Hypopnea Syndrome AHI: 20 Reason for follow up: annual Prior sleep studies: Yes Year and Where: 07/2018 [facility] Type of Sleep Study: Home sleep study HPI additional information: PIPPA ORR was diagnosed to have moderate, AHI 20, obstructive sleep apnea- hypopnea syndrome and returned today for re-qualifying for therapy annual follow-up. Subjective Initial [place] Sleepiness Scale score: 14 Current [place] Sleepiness Scale score: 13 Allergies and Home Medications Drug allergies reviewed: Yes (NKDA) Home medication list reviewed: Yes (no changes) Review of Systems Review of systems same as previous: Yes (no changes) Physical Exam Blood Pressure: 132/62 (left) Cuff size: long Heart Rate: 61 O2 Saturation: 95 Height: 5 ft 3.5 in Weight: 162 lb 3.2 oz Weight change since last visit: 3 lb loss Body Mass Index: 28.3 BMI Classification: Overweight Impression and Plan 1. Suspected Obstructive Sleep Apnea-Hypopnea Syndrome, as previously diagnosed and as suggested by a history of loud and irregular snoring, observed cessation of breath while asleep, gasping or choking in sleep, frequent awakening during the night, unrefreshed sleep, cognitive impairment, and excessive daytime sleepiness. She was unable to get the in lab test for [facility]. She did a home study which showed moderate obstructive sleep apnea with an AHI 20. She was never set up on a CPAP. She will need to repeat a sleep study to requalify for treatment. I recommend proceeding to polysomnography to confirm the diagnosis and to assess severity. If the patient has significant sleep disordered breathing, a manual CPAP titration study will also be performed to find the optimal treatment pressure. I informed the patient of what the sleep studies involve and after some discussion, obtained agreement to proceed. The pathophysiology of obstructive sleep apnea-hypopnea syndrome was discussed with the patient and health risks of cardiovascular and cerebrovascular disease if not treated. 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 Patient agreed to plan. * Schedule polysomnography +- manual CPAP titration study and return in 1-2 weeks after the study to discuss result and initiate therapy. * Avoid long distance driving or driving when feeling sleepy. * Avoid alcohol, sedative and muscle relaxant around bedtime. * Attempt to lose weight. * Review instructions provided by trained office staff on how to prepare for the sleep study. * Return for follow-up after sleep study completed. Counseling Topics: Weight loss health impact Visit Type: In Office Time Spent with Patient (minutes): 22 Provider Statement: I spent 100% of the Face to Face Visit with the patient with greater than 50% spent counseling the patient and coordination of care.
== END 2021-04-04 08:44 | disposition home or self-care (01) ==
LOC: SC 08:43
PROVIDERS: ATTEND Nurse Practitioner Family
DX: G47.10 Hypersomnia, unspecified (principal); G47.8 Other sleep disorders; R06.81 Apnea, not elsewhere classified; R06.83 Snoring; E66.3 Overweight; Z68.28 Body mass index [BMI] 28.0-28.9, adult
CPT/HCPCS: 99213; G0463; 99212

== ENCOUNTER 2021-06-27 12:45 | Outpatient (CLI) | payer MEDICARE | END 2021-06-27 12:46 | disposition home or self-care (01) | LOC: SC 12:45 | PROVIDERS: ATTEND Nurse Practitioner Family | DX: G47.33 Obstructive sleep apnea (adult) (pediatric) (principal); G47.61 Periodic limb movement disorder; Z20.822 Contact with and (suspected) exposure to COVID-19 | CPT/HCPCS: 95811 ==

== ENCOUNTER 2021-07-18 09:28 | Outpatient (CLI) | payer MEDICARE ==
[2021-07-18 10:03] VITALS: BP 162/87
--- NOTE | 2021-07-18 10:03 | SLEEP CARE CONSULTATION ---
Information from patient questionnaire entered by Sejal Hurtado MA. I have reviewed and concur with the information entered by Sejal Hurtado MA. This document represents the service I personally performed and the decisions made by Sheila shah Caren J, ARNP. History of Present Illness Service Date and Time: 07/18/2021 0928 Initial [place] Sleepiness Scale score: 14 Current [place] Sleepiness Scale score: 17 (2021) Additional HPI information: PIPPA ORR retruns for follow up of the sleep study with a manual CPAP titration study performed on 06-27-2021. The patient was informed of the following polysomnography findings: I explained that the optimal CPAP pressure is 7 cmH2O. Sleep Study - Results Type of Sleep Study: Home sleep study Prior sleep studies: Yes Year and Where: 07/2018 [facility] Polysomnography/Home Sleep Study results: IMPRESSION: The quality of the study is good. CPAP was initiated at 5 cmH2O and titrated up to CPAP at 9 cmH2O. CPAP at 7 cmH2O appeared to be optimal (AHI of 3 per hour on the pressure). There was supine REM sleep on the pressure. Oxygen saturation was normal throughout the night. Lower CPAP settings allowed a few residual respiratory events. The patient appeared to have tolerated positive airway pressure therapy fairly well. The patients sleep efficiency was reduced due to sleep onset insomnia and a prolonged awakening near the end of the study. The sleep architecture was abnormal for sleep fragmentation and reduced amount of time spent in REM sleep. There was moderate periodic leg movement of sleep contributing to the sleep fragmentation. Cardiac rhythm was normal sinus rhythm without significant arrhythmia. No abnormal behavior (parasomnia) observed. CONCLUSIONS and RECOMMENDATIONS: 1. Obstructive sleep apnea-hypopnea (ICD-10 G47.33), moderate (AHI was 20 by a home sleep apnea test 2 years ago), adequately controlled with CPAP at 7 cmH2O. CPAP therapy is, therefore, recommended at the pressure setting. AutoCPAP set between 4 and 8 cmH20 is also appropriate. Mask used was a full face mask. With BMI of 28.2 Kg/M2 , some weight loss is also recommended. 2. Periodic leg movement (ICD G47.61), moderate, treatment may be indicated. Clinical correlation advised. Allergies and Home Medications Known drug allergies: No Drug allergies reviewed: Yes Home medication list reviewed: Yes (no changes) Allergy and home medication list: Allergies amoxicillin trihydrate * [From Augmentin] Allergy (Verified 01/18/17 19:34) Rash potassium clavulanate * [From Augmentin] Allergy (Verified 01/18/17 19:34) Rash Review of Systems Review of systems same as previous: Yes (no changes) Physical Exam Vital signs obtained and entered by: Bertin HURTADO CMA AAPRINCESS Blood Pressure: 162/87 (RIGHT, PULSE 64, RESP 16,) Heart Rate: 67 O2 Saturation: 96 (N95 MASK) Height: 5 ft 3.5 in Weight: 158 lb Body Mass Index: 27.5 BMI Classification: Overweight Impression and Plan 1. Obstructive Sleep Apnea-Hypopnea Syndrome, moderate. She completed a titration study the showed her optimal pressure at 7 cmH2O. The patient will be started on nasal autoCPAP therapy with pressure set at 4-8 cmH2O. Compliance guidelines also reviewed. A copy of compliance guidelines will be given for reference at check out. Patient advised to maintain a healthy weight or lose weight to improve overall health and reduce apneas. 2. Periodic limb movement, moderate, that did fragment patients sleep. Periodic limb movement of sleep (PLMS) is characterized by episodes of repetitive limb movements that occur during sleep and usually involve the lower limbs. The etiology is unknown but can be associated with restless leg syndrome (RLS), a low serum ferritin level below 50 to 75mcg / L, neuropathy, spinal cord diseases, kidney disease, rheumatological disorders, narcolepsy, obstructive sleep apnea, and REM sleep behavior disorder. Caffeine can also aggravate PLMS and should be avoided. Sleep hygiene methods can also improve sleep as well as lifestyle changes such as regular exercise. Patient was advised that no treatment is needed at this time. If symptoms increase, then further evaluation is indicated. * Nasal auto CPAP therapy, pressure at 4-8 cm H2O. * Attempt to lose weight. * Avoid alcohol consumption near bedtime. * Avoid supine sleep until using CPAP. * The patient is again cautioned about driving until sleepiness completely resolves. * Return one month after CPAP obtained. I will assess response to therapy and compliance at that time. Counseling Topics: Weight loss health impact Visit Type: In Office Time Spent with Patient (minutes): 20 Provider Statement: I spent 100% of the Face to Face Visit with the patient with greater than 50% spent counseling the patient and coordination of care.
== END 2021-07-18 09:29 | disposition home or self-care (01) ==
LOC: SC 09:28
PROVIDERS: ATTEND Nurse Practitioner Family
DX: G47.33 Obstructive sleep apnea (adult) (pediatric) (principal); G47.61 Periodic limb movement disorder; E66.3 Overweight; Z68.27 Body mass index [BMI] 27.0-27.9, adult
CPT/HCPCS: 99213; G0463; 99212

== ENCOUNTER 2021-09-26 08:52 | Outpatient (CLI) | payer MEDICARE ==
--- NOTE | 2021-09-26 09:22 | SLEEP CARE CONSULTATION ---
Information from patient questionnaire entered by Sejal Hurtado MA. I have reviewed and concur with the information entered by Sejal Hurtado MA. This document represents the service I personally performed and the decisions made by , Bhumi Sosa ARNP. History of Present Illness Service Date and Time: 09/26/2021 0852 Previous diagnosis: Moderate, Obstructive Sleep Apnea-Hypopnea Syndrome AHI: 20 Reason for follow up: first compliance (SET UP DATE 08/23/21, RESMED,) Equipment type: CPAP Equipment obtained from: Other ([facility]; getting supplies) Mask style: Full face Mask brand: Resmed (F20) Backup mask available: No (will keep old mask when replaced) Last cushion change: 1 month Prior sleep studies: Yes Year and Where: 07/2018 [facility] Type of Sleep Study: Home sleep study HPI additional information: PIPPA ORR was diagnosed to have moderate, AHI 20, obstructive sleep apnea- hypopnea syndrome and returned today for CPAP therapy first compliance follow- up. Sleep Study - Results Type of Sleep Study: Home sleep study Prior sleep studies: Yes Year and Where: 07/2018 [facility] CPAP Compliance Data - Data Reviewed with Patient Average duration of nightly device use: 6 HOURS 31 MINUTES Compliance rate %: 100 Current pressure setting (cmH2O): 5-8 (95th 7.8, max 8.0) Average residual AHI: 5.1 Central apnea: .8 Obstructive apnea: 3.6 Average large leak: 6.5 Subjective Patient concerns: reports: mask discomfort, air blowing in eyes, mask leak noise. denies: aerophagia, condensation in mask/hose, nasal congestion, dry mouth, nose, throat, epistaxis, other Observed to snore while using device: No Current pressure setting perceived as: comfortable On therapy, patient: reports: sleeping better, awakening more refreshed, being more awake and alert during the day, more rested overall. denies: drowsiness while driving Initial [place] Sleepiness Scale score: 14 Current [place] Sleepiness Scale score: 16 Allergies and Home Medications Home medication list reviewed: Yes (no changes) Allergy and home medication list: Allergies amoxicillin trihydrate * [From Augmentin] Allergy (Verified 01/18/17 19:34) Rash potassium clavulanate * [From Augmentin] Allergy (Verified 01/18/17 19:34) Rash Review of Systems Review of systems same as previous: Yes (no changes) Physical Exam Vital signs obtained and entered by: DURAN Blood Pressure: 147/70 (right) Cuff size: wrist Heart Rate: 63 O2 Saturation: 97 Height: 5 ft 3.5 in Weight: 161 lb (per pt) Body Mass Index: 28.0 BMI Classification: Overweight Impression and Plan 1. Obstructive Sleep Apnea-Hypopnea Syndrome, moderate, with excellent treatment compliance and good apnea control with minimal elevation of residual AHI. On CPAP therapy, the patient has better sleep quality and is more rested overall. The patients pressure will be changed to autoCPAP 7-10 cmH20 for elevation of residual AHI. Patient advised to contact me if pressure change is uncomfortable so that it can be adjusted. Goals for apnea control discussed. She has been having some mask discomfort due to mask leaking especially when she turns to her side to sleep. Mask leaks can be reduced by washing mask daily and changing mask cushions more frequently to improve mask seal and comfort. Additionally, mask leaks predominately from when patient sleeps on their side can be reduced by using a CPAP pillow. A CPAP pillow sample was shown. She was informed that this and other styes can be purchased online. She voiced understanding. Patient's apnea severity and rationale for treatment to reduce apnea, improve sleep quality and reduce cardiovascular and cerebrovascular events was reviewed. I also reviewed the benefit of consistent device use of CPAP for hypertension, cardiac disease, depression and anxiety. Patient was also encouraged to try to lose weight to improve her overall health and to reduce apneas. * Change auto CPAP pressure to 7-10 cmH2O * Notify me if snoring with mask or feeling that the pressure is too much or too little * Attempt to lose weight * Call this office if any problems using CPAP * Return for follow up in 1-2 months, or sooner if concerns arise Counseling Topics: Spare mask, Weight loss health impact Visit Type: In Office Time Spent with Patient (minutes): 22 Provider Statement: I spent 100% of the Face to Face Visit with the patient with greater than 50% spent counseling the patient and coordination of care.
[2021-09-26 09:23] VITALS: BP 147/70
== END 2021-09-26 08:53 | disposition home or self-care (01) ==
LOC: SC 08:52
PROVIDERS: ATTEND Nurse Practitioner Family
DX: G47.33 Obstructive sleep apnea (adult) (pediatric) (principal)
CPT/HCPCS: 99213; G0463; 99212

== ENCOUNTER 2022-02-14 08:35 | Outpatient (CLI) | payer MEDICARE ==
[2022-02-14 09:11] VITALS: BP 160/80
--- NOTE | 2022-02-14 09:11 | SLEEP CARE CONSULTATION ---
Information from patient questionnaire entered by Ameya Zamora. I have reviewed and concur with the information entered by Ameya Zamora. This document represents the service I personally performed and the decisions made by , Bhumi Sosa ARNP. History of Present Illness Service Date and Time: 02/14/2022 0835 Previous diagnosis: Moderate, Obstructive Sleep Apnea-Hypopnea Syndrome AHI: 20 Reason for follow up: three month (3 MONTH F/U, RESMED) Equipment type: CPAP Equipment obtained from: Other ([facility]; getting supplies as needed) Mask style: Full face Mask brand: Resmed (F20) Backup mask available: Yes (old mask) Last cushion change: 1 month Prior sleep studies: Yes Year and Where: 07/2018 [facility] Type of Sleep Study: Home sleep study HPI additional information: PIPPA ORR was diagnosed to have moderate, AHI 20.0, obstructive sleep apnea- hypopnea syndrome and returned today for CPAP therapy three month follow-up. Sleep Study - Results Type of Sleep Study: Home sleep study Prior sleep studies: Yes Year and Where: 07/2018 [facility] CPAP Compliance Data - Data Reviewed with Patient Average duration of nightly device use: 7 hours, 30 minutes Compliance rate %: 93 (11/15/21 to 02/12/22; 84/90 days used) Current pressure setting (cmH2O): 7-10 Average residual AHI: 2.8 Subjective Missed days of use due to: reports: travel (camping trip) Patient concerns: reports: dry mouth, nose, throat (dry mouth and a little sore throat sometimes). denies: aerophagia, mask discomfort, air blowing in eyes, mask leak noise, condensation in mask/hose, nasal congestion, epistaxis, other Observed to snore while using device: No Current pressure setting perceived as: comfortable On therapy, patient: reports: sleeping better, awakening more refreshed, being more awake and alert during the day, more rested overall. denies: drowsiness while driving Initial [place] Sleepiness Scale score: 14 Current [place] Sleepiness Scale score: 9 (02/14/22) Allergies and Home Medications Drug allergies reviewed: Yes Home medication list reviewed: Yes (no changes) Allergy and home medication list: Allergies amoxicillin trihydrate * [From Augmentin] Allergy (Verified 01/18/17 19:34) Rash potassium clavulanate * [From Augmentin] Allergy (Verified 01/18/17 19:34) Rash Review of Systems Review of systems same as previous: Yes (no changes) Physical Exam Vital signs obtained and entered by: PRINCESS ADHIKARI Blood Pressure: 160/80 (LEFT ARM) Cuff size: regular Heart Rate: 61 O2 Saturation: 97 Height: 5 ft 3.5 in Weight: 167 lb Body Mass Index: 29.1 BMI Classification: Overweight Impression and Plan 1. Obstructive Sleep Apnea-Hypopnea Syndrome, moderate, with good treatment compliance and good apnea control. On CPAP therapy, the patient has better sleep quality and is more rested overall. Patient states she is doing very well and only missed using her CPAP on the days that she went camping. She has significant improvement of her sleep apnea and is satisfied with current CPAP therapy. She has had some dry mouth. Oral dryness can be reduced by adjusting humidity setting higher or heated hose lower or by adjusting both settings. Patient would like to try a different style of mask. She is currently using a ResMed F 20. I advised her to contact her DME to discuss trying a different mask, either fullface or nasal cushion. She may contact me if she needs a prescription change or the DME company can request this. She voiced understanding. Patient's apnea severity and rationale for treatment to reduce apnea, improve sleep quality and reduce cardiovascular and cerebrovascular events was reviewed. I also reviewed the benefit of consistent device use of CPAP for hypertension, cardiac disease, depression and anxiety. 2. Overweight, unspecified. Patient's BMI is 29.1. Patient states she did gain some weight since starting the CPAP but she is working on losing again. I advised her to concentrate on good nutrition and regular exercise to help her lose weight. * Continue auto CPAP pressure at 7-10 cmH2O * Patient to contact DME for possible mask change * Notify me if snoring with mask or feeling that the pressure is too much or too little * Continue to try to lose weight * Call this office if any problems using CPAP * Return for follow up in 6 months, or sooner if concerns arise Counseling Topics: Spare mask, Weight loss health impact Visit Type: In Office Time Spent with Patient (minutes): 21 Provider Statement: I spent 100% of the Face to Face Visit with the patient with greater than 50% spent counseling the patient and coordination of care.
== END 2022-02-14 08:36 | disposition home or self-care (01) ==
LOC: SC 08:35
PROVIDERS: ATTEND Nurse Practitioner Family
DX: G47.33 Obstructive sleep apnea (adult) (pediatric) (principal); E66.3 Overweight; Z68.29 Body mass index [BMI] 29.0-29.9, adult
CPT/HCPCS: 99213; G0463; 99212

== ENCOUNTER 2022-06-20 09:57 | Outpatient (CLI) | payer MEDICARE ==
--- NOTE | 2022-06-21 12:48 | Mammography Report ---
BILATERAL DIGITAL SCREENING MAMMOGRAM 3D/2D: 06/20/2022 CLINICAL: Routine screening. Comparison is made to exams dated: 05/25/2019 mammogram, 04/22/2016 mammogram, 04/19/2015 mammogram, 05/24/2014 mammogram, and 03/02/2013 mammogram - [facility]. There are scattered areas of fibroglandular density in both breasts (category b / 25%-50% glandular t issue). There are benign calcifications in both breasts. No significant masses, calcifications, or other findings are seen in either breast. There has been no significant interval change. IMPRESSION: BENIGN There is no mammographic evidence of malignancy. A 1 year screening mammogram is recommended. Based on the Tyrer Cuzick model (a risk assessment model) the patients lifetime risk is 4.0% and her 10 year risk is 4.0%. According to the ACR, ACS, and NCCN guidelines, an annual breast MRI exam erika g with mammogram is recommended if the patients lifetime risk is 20% or greater. This exam was interpreted at Station ID: [id number]. NOTE: For mammograms, a report in lay terms will be sent to the patient. Approximately 15% of breast malignancies will not be visualized mammographically. In the management of a palpable breast mass, a negative mammogram must not discourage biopsy of a clinically suspicious lesion. Electronically Signed By: Tobi crane/lynsey:06/20/2022 13:44:38 ACR BI-RADS Category 2: Benign Finding(s) 3342F PARENCHYMAL PATTERN: (A) - The breast(s) demonstrate(s) scattered fibroglandular densities. BI-RADS CATEGORY: (2) - 2 RECOMMENDATION: (ANNUAL) - Recommend routine annual screening mammography. [id number] 1 year screening LATERALITY: (B)
== END 2022-06-20 09:58 | disposition home or self-care (01) ==
LOC: DI.N 09:57
PROVIDERS: ATTEND Nurse Practitioner
DX: Z12.31 Encounter for screening mammogram for malignant neoplasm of breast (principal)

== ENCOUNTER 2022-07-08 07:09 | Outpatient (CLI) | payer MEDICARE ==
[2022-07-08 12:52] LABS: BASOPHILS # (AUTO) 0.1 10^3/uL (0.0-0.1); BASOPHILS % (AUTO) 0.9 %; EOSINOPHILS # (AUTO) 0.1 10^3/uL (0.0-0.7); EOSINOPHILS % (AUTO) 1.5 %; HCT - HEMATOCRIT 42.7 % (37.0-47.0); HGB - HEMOGLOBIN 13.3 g/dL (12.0-16.0); LYMPHOCYTES # (AUTO) 1.9 10^3/uL (1.5-3.5); LYMPHOCYTES % (AUTO) 28.9 %; MEAN CORPUSCULAR HEMOGLOBIN 28.5 pg (27.0-31.0); MEAN CORPUSCULAR HGB CONC 31.1 g/dL (32.0-36.0); MEAN CORPUSCULAR VOLUME 91.6 fL (81.0-99.0); MEAN PLATELET VOLUME 10.5 fL (7.9-10.8); MONOCYTES # (AUTO) 0.7 10^3/uL (0.0-1.0); MONOCYTES % (AUTO) 10.1 %; NEUTROPHILS # (AUTO) 3.8 10^3/uL (1.5-6.6); NEUTROPHILS % (AUTO) 58.1 %; PLT - PLATELET COUNT 352 10^3/uL (130-450); RED BLOOD COUNT 4.66 10^6/uL (4.20-5.40); RED CELL DISTRIBUTION WIDTH 13.5 % (12.0-15.0); WHITE BLOOD COUNT 6.6 x10^3/uL (4.8-10.8)
[2022-07-08 13:37] LABS: ALBUMIN 4.2 g/dL (3.2-5.5); ALBUMIN/GLOBULIN RATIO 1.3 (1.0-2.2); ALKALINE PHOSPHATASE 93 IU/L (42-121); ALT ALANINE AMINOTRANSFERASE 19 IU/L (10-60); AST ASPARTATE AMINOTRANSFERASE 15 IU/L (10-42); BILIRUBIN,TOTAL 0.8 mg/dL (0.2-1.0); BUN - BLOOD UREA NITROGEN 12 mg/dL (6-20); CARBON DIOXIDE - CO2 23 mmol/L (21-32); CHLORIDE 103 mmol/L (101-111); CHOL/HDL RATIO 3.5 (<4.4); CHOLESTEROL 159 mg/dL; CREATININE 0.7 mg/dL (0.4-1.0); GFR - MDRD 82 (>89); GLUCOSE 112 mg/dL (70-100); HDL CHOLESTEROL 46 mg/dL; LDL CHOLESTEROL,CALCULATED 81 mg/dL; LDL/HDL RATIO 1.8 (<4.4); POTASSIUM 4.3 mmol/L (3.5-5.0); SODIUM 139 mmol/L (135-145); TOTAL PROTEIN 7.5 g/dL (6.7-8.2); TRIGLYCERIDES 158 mg/dL; VLDL CHOLESTEROL 32 mg/dL
[2022-07-08 13:47] LABS: THYROID STIMULATING HORMONE 1.84 uIU/mL (0.34-5.60)
== END 2022-07-08 07:10 | disposition home or self-care (01) ==
LOC: LAB.N 07:09
PROVIDERS: ATTEND Nurse Practitioner
DX: I10 Essential (primary) hypertension (principal); E78.5 Hyperlipidemia, unspecified; F32.A Depression, unspecified
CPT/HCPCS: 36415; 80053; 80061; 83721; 84443; 85025

== ENCOUNTER 2022-09-25 09:34 | Outpatient (CLI) | payer MEDICARE ==
[2022-09-25 10:06] VITALS: BP 136/82
--- NOTE | 2022-09-25 10:06 | SLEEP CARE CONSULTATION ---
Information from patient questionnaire entered by Ksenia Avery. I have reviewed and concur with the information entered by Ksenia Avery. This document represents the service I personally performed and the decisions made by me, Bhumi Sosa ARNP. History of Present Illness Service Date and Time: 09/25/2022 0934 Previous diagnosis: Moderate, Obstructive Sleep Apnea-Hypopnea Syndrome AHI: 20 Reason for follow up: six month (F/U) Equipment type: CPAP (RESMED Airsense 11, s/u 08/2021) Equipment obtained from: Other ([facility]; getting supplies as needed) Mask style: Full face Mask brand: Resmed (AirFit F20) Backup mask available: Yes (old mask) Last cushion change: 3 weeks ago Prior sleep studies: Yes Year and Where: 07/2018 [facility] Type of Sleep Study: Home sleep study HPI additional information: PIPPA ORR was diagnosed to have moderate, AHI 20, obstructive sleep apnea- hypopnea syndrome and returned today for CPAP therapy six month follow-up. Sleep Study - Results Type of Sleep Study: Home sleep study Prior sleep studies: Yes Year and Where: 07/2018 [facility] CPAP Compliance Data - Data Reviewed with Patient Average duration of nightly device use: 7 HRS 53 MINS Compliance rate %: 89 (03/28/22-09/23/22; 162/180 days used) Current pressure setting (cmH2O): 7-10 Average residual AHI: 2.2 Central apnea: 0.4 Obstructive apnea: 1.3 Average large leak: 0.3 lpm Subjective Missed days of use due to: reports: illness (Covid in Feb, too congested) Patient concerns: reports: mask discomfort (indents on face with mask). denies: aerophagia, air blowing in eyes, mask leak noise, condensation in mask/hose, nasal congestion, dry mouth, nose, throat, epistaxis Observed to snore while using device: Yes (occasional) Current pressure setting perceived as: comfortable On therapy, patient: reports: sleeping better, awakening more refreshed, being more awake and alert during the day, more rested overall. denies: drowsiness while driving Initial [place] Sleepiness Scale score: 14 Current [place] Sleepiness Scale score: 9 (09/25/22) Allergies and Home Medications Known drug allergies: Yes (as listed) Drug allergies reviewed: Yes Home medication list reviewed: Yes (no changes) Allergy and home medication list: Allergies amoxicillin trihydrate * [From Augmentin] Allergy (Verified 09/24/22 13:40) Rash potassium clavulanate * [From Augmentin] Allergy (Verified 09/24/22 13:40) Rash Review of Systems Review of systems same as previous: No (cortisone shot in finger for trigger finger in right hand) Physical Exam Vital signs obtained and entered by: KSENIA Limon MA Blood Pressure: 136/82 (LEFT ARM) Cuff size: regular Heart Rate: 59 O2 Saturation: 97 Height: 5 ft 3.5 in Weight: 166 lb Weight change since last visit: 1 lb loss Body Mass Index: 28.9 BMI Classification: Overweight Impression and Plan 1. Obstructive Sleep Apnea-Hypopnea Syndrome, moderate, with good treatment compliance and good apnea control. On CPAP therapy, the patient has better sleep quality and is more rested overall. Patient has significant improvement of their sleep apnea and is satisfied with current CPAP therapy. She has been getting some "indents" on her face from the full face mask, F20. She would like to try a nasal mask. I will add this to her prescription. Patient denies problems with oral dryness, nasal congestion, epistaxis, skin irritation or aerophagia. Vivienne montanez's apnea severity and rationale for treatment to reduce apnea, improve sleep quality and reduce cardiovascular and cerebrovascular events was reviewed. I also reviewed the benefit of consistent device use of CPAP for hypertension, cardiac disease, depression and anxiety. Patient asking questions about getting a travel CPAP. I explained that her insurance may not pay for this but she can obtain one with a prescription on her own. She requested a prescription for the travel CPAP and will look into this on her own. 2. Overweight, unspecified. Currently patients BMI is 28.9. Obesity increases the risk of apnea, CPAP pressure requirements and overall health risks especially cardiovascular and diabetes. Thus patient is advised to lose weight. * Continue auto CPAP pressure at 7-10 cmH2O * Update supplies * Mask fitting for nasal mask * Prescription for a travel CPAP * Notify me if snoring with mask or feeling that the pressure is too much or too little * Attempt to lose weight * Call this office if any problems using CPAP * Return for follow up in 1 year, or sooner if concerns arise Counseling Topics: Spare mask, Weight loss health impact Visit Type: In Office Time Spent with Patient (minutes): 20 Provider Statement: I spent 100% of the Face to Face Visit with the patient with greater than 50% spent counseling the patient and coordination of care.
== END 2022-09-25 09:35 | disposition home or self-care (01) ==
LOC: SC 09:34
PROVIDERS: ATTEND Nurse Practitioner Family
DX: G47.33 Obstructive sleep apnea (adult) (pediatric) (principal); E66.3 Overweight; Z68.28 Body mass index [BMI] 28.0-28.9, adult
CPT/HCPCS: 99213; G0463; 99212

== ENCOUNTER 2023-07-18 08:12 | Outpatient (CLI) | payer MEDICARE ==
--- NOTE | 2023-07-18 19:31 | DEXA Report ---
PROCEDURE: Dexa Spine and/or Hip INDICATIONS: POSTMENOPAUSAL TECHNIQUE: Dual energy x-ray absorptiometry (DEXA) was performed in the regions detailed below. COMPARISON: 04/16/2019 FINDINGS: Lumbar Spine: Bone Mineral Density 1.089 g/cm/cm,T score -0.8. Previously -1.1 Left Femoral Neck: Bone Mineral Density 0.776 g/cm/cm, T score -1.9 . Previously -1.9 Left Total Hip: Bone Mineral Density 0.884 g/cm/cm,T score -1.0. Previously -0.6 (T score greater or equal to -1.0: NORMAL) (T score from -1.1 to -2.4: OSTEOPENIA) (T score less than or equal to -2.5 to: OSTEOPOROSIS) IMPRESSION: Left femoral neck osteopenia. Total hip bone mineralization is low normal but statistically worse neeraj n the prior exam Patients with diagnosis of osteoporosis or osteopenia should have regular bone mineral density assess ment. For those eligible for Medicare, routine testing is allowed once every 2 years. Testing frequ ency can be increased for patients who have rapidly progressing disease or for those who are receivin g medical therapy to restore bone mass. Reviewed by: Francisco Javier Perkins MD on 07/18/2023 6:29 PM [facility] Approved by: Francisco Javier Perkins MD on 07/18/2023 6:29 PM [facility] Station ID: [id number]
== END 2023-07-18 08:13 | disposition home or self-care (01) ==
LOC: DI 08:12
PROVIDERS: ATTEND Nurse Practitioner
DX: M85.89 Other specified disorders of bone density and structure, multiple sites (principal); Z78.0 Asymptomatic menopausal state

== ENCOUNTER 2023-07-30 09:10 | Outpatient (CLI) | payer MEDICARE ==
--- NOTE | 2023-07-31 09:41 | Mammography Report ---
BILATERAL DIGITAL SCREENING MAMMOGRAM 3D/2D: 07/30/2023 CLINICAL: Routine screening. Comparison is made to exams dated: 06/20/2022 mammogram, 05/25/2019 mammogram, 04/22/2016 mammogram, 04/19/2015 mammogram, 05/24/2014 mammogram, and 03/02/2013 mammogram - [facility]. There are scattered areas of fibroglandular density in both breasts (category b / 25%-50% glandular t issue). There are benign calcifications in both breasts. No significant masses, calcifications, or other findings are seen in either breast. There has been no significant interval change. IMPRESSION: BENIGN There is no mammographic evidence of malignancy. A 1 year screening mammogram is recommended. Based on the Tyrer Cuzick model (a risk assessment model) the patient's lifetime risk is 3.6% and her 10 year risk is 0.0%. According to the ACR, ACS, and NCCN guidelines, an annual breast MRI exam erika g with mammogram is recommended if the patient's lifetime risk is 20% or greater. This exam was interpreted at Station ID: [id number]. NOTE: For mammograms, a report in lay terms will be sent to the patient. Approximately 15% of breast malignancies will not be visualized mammographically. In the management of a palpable breast mass, a negative mammogram must not discourage biopsy of a clinically suspicious lesion. Electronically Signed By: Nima samuel/lynsey:07/31/2023 08:35:41 letter sent: No_Letter ACR BI-RADS Category 2: Benign Finding(s) 3342F PARENCHYMAL PATTERN: (A) - The breast(s) demonstrate(s) scattered fibroglandular densities. BI-RADS CATEGORY: (2) - 2 Mammogram [id number] 1 year screening LATERALITY: (B)
== END 2023-07-30 09:11 | disposition home or self-care (01) ==
LOC: DI.N 09:10
DX: Z12.31 Encounter for screening mammogram for malignant neoplasm of breast (principal); R92.323 Mammographic fibroglandular density, bilateral breasts; R92.1 Mammographic calcification found on diagnostic imaging of breast

== ENCOUNTER 2023-09-04 08:19 | Day surgery (SDC) | payer MEDICARE ==
[2023-09-04] MEDS ORDERED: PROPOFOL 500 MG/50 ML 500 MG/50 ML VIAL ONE (09:02)
--- NOTE | 2023-09-04 09:47 | ANESTHESIA ---
Pre-Anesthesia VS, & Labs - Diagnosis screening exam - Procedure colonoscopy Vital Signs: Temp Pulse Resp BP Pulse Ox O2 Flow Rate 36.6 C 62 14 155/74 H 97 09/04/23 08:37 09/04/23 08:37 09/04/23 08:37 09/04/23 08:37 09/04/23 08:37 Height: 5 ft 3 in Weight (kg): 72.1 kg Body Mass Index: 28.1 BMI Classification: Overweight - NPO Last Fluid Intake: 629 - Is Patient ?: No Home Medications and Allergies Home Medications: Ambulatory Orders Atorvastatin [Lipitor] 20 mg PO QPM 09/04/23 FLUoxetine [PROzac] 40 mg ORAL DAILY 09/04/23 Lisinopril [Zestril] 2 tab ORAL DAILY 09/04/23 Metoprolol Succinate [Kapspargo Sprinkle] 50 mg ORAL DAILY 09/04/23 Atorvastatin [Lipitor] 20 mg PO QPM 09/04/23 FLUoxetine [PROzac] 40 mg ORAL DAILY 09/04/23 Lisinopril [Zestril] 2 tab ORAL DAILY 09/04/23 Metoprolol Succinate [Kapspargo Sprinkle] 50 mg ORAL DAILY 09/04/23 Allergies/Adverse Reactions: Allergies Allergy/AdvReac Type Severity Reaction Status Date / Time amoxicillin trihydrate * Allergy Rash Verified 09/25/22 09:44 [From Augmentin] potassium clavulanate * Allergy Rash Verified 09/25/22 09:44 [From Augmentin] Anes History & Medical History - Anesthetic History Anesthesia Complications: reports: No previous complications - Medical History Cardiovascular: reports: Hypertension, High cholesterol Pulmonary: reports: Sleep apnea, CPAP use, Other Gastrointestinal: reports: None Urinary: reports: Kidney stones Neuro: reports: None Musculoskeletal: reports: Osteoarthritis Endocrine/Autoimmune: reports: None Blood Disorders: reports: Anemia Skin: reports: None Smoking Status: Never smoker Psychosocial: reports: No issues indicated History of Cancer?: No - Surgical History General: reports: Cholecystectomy, Colonoscopy Orthopedic: reports: Rotator cuff repair Exam General: Alert, Oriented x3, Cooperative, No acute distress Dental: WNL Mouth Openin Fingerbreadth Neck Mobility: Normal Mallampati classification: IV Thyromental Distance: 4-6 cm Mental/Cognitive Status: Alert/Oriented X3, Normal for patient Plan Anesthesia Type: General, Total IV Consent for Procedure(s) Verified and Reviewed: Yes Code Status: Attempt Resuscitation ASA classification: 2-Mild systemic disease Is this case an emergency?: No
--- NOTE | 2023-09-04 10:10 | HISTORY & PHYSICAL EXAMINATION ---
Chief Complaint - Chief Complaint Chief Complaint: here for colonoscopy History of Present Illness - History Obtained From Records Reviewed: yes History obtained from: pt Exam Limitations: none - History of Present Illness HPI Comment/Other: last colonoscopy 10 years ago. here for screening. 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: reports: None : reports: Kidney stones HEENT: reports: None Psych: reports: Depression, Anxiety Musculoskeletal: reports: Osteoarthritis Derm: reports: None MRSA Hx?: No - Past Surgical History General: reports: Cholecystectomy, Colonoscopy Ortho: reports: Rotator cuff repair - POLST Patient has POLST: No Meds/Allgy - Home Medications Home Medications: Ambulatory Orders Medication Instructions Recorded Confirmed Cyclobenzaprine [Flexeril] 10 mg PO TID PRN #20 tablet 04/14/16 09/25/22 Dicyclomine [Bentyl] 10 mg PO QID #14 capsule 01/18/17 09/25/22 Atorvastatin [Lipitor] 20 mg PO QPM 09/04/23 09/04/23 FLUoxetine [PROzac] 40 mg ORAL DAILY 09/04/23 09/04/23 Lisinopril [Zestril] 2 tab ORAL DAILY 09/04/23 09/04/23 Metoprolol Succinate [Kapspargo 50 mg ORAL DAILY 09/04/23 09/04/23 Sprinkle] - Allergies Allergies/Adverse Reactions: Allergies Allergy/AdvReac Type Severity Reaction Status Date / Time amoxicillin trihydrate * Allergy Rash Verified 09/25/22 09:44 [From Augmentin] potassium clavulanate * Allergy Rash Verified 09/25/22 09:44 [From Augmentin] Review of Systems - Other Findings Other Findings: 10 pt ros as above otherwise unremarkable Exam - Vital Signs Vital Signs: Vital Signs x48h Temp Pulse Resp BP Pulse Ox 09/04/23 08:37 36.6 C 62 14 155/74 H 97 - Physical Exam General Appearance: positive: No acute distress, Alert Eyes Bilateral: positive: PERRL, EOMI ENT: positive: No signs of dehydration Neck: positive: No JVD, Trachea midline Respiratory: positive: No respiratory distress Cardiovascular: positive: Regular rate & rhythm Abdomen: positive: No distention Neurologic/Psychiatric: positive: Oriented x3 Conclusion/Plan - Problem List (1) Colon cancer screening Conclusion/Plan: plan colonoscopy. parq held and consent obtained
[2023-09-04] MEDS ORDERED: LIDOCAINE-PF 2% 10 ML AMP SUBQ ONE (10:12)
[2023-09-04 11:24] VITALS: BP 114/67; O2SAT 98
--- NOTE | 2023-09-04 12:01 | ANESTHESIA POST OP EVALUATION ---
Anesthesia Post Eval - Post Anesthesia Eval Vitals: Last Vital Signs Temp 36.2 C L 09/04/23 11:14 Pulse 63 09/04/23 11:14 Resp 16 09/04/23 11:14 BP 114/67 09/04/23 11:14 Pulse Ox 98 09/04/23 11:14 O2 Flow Rate CV Function Including HR & BP: Stable Pain Control: Satisfactory Nausea & Vomiting: Negative Mental Status: Baseline Respiratory Status: Airway Patent Hydration Status: Satisfactory Anesthesia Complications: None
== END 2023-09-04 08:20 | disposition home or self-care (01) ==
LOC: SDS 08:19
PROVIDERS: ATTEND Surgery
PROC: 0DBM8ZX Excision of Descending Colon, Via Natural or Artificial Opening Endoscopic, Diagnostic (ICD-10-PCS; 2023-09-04)
PROC: 0DBK8ZX Excision of Ascending Colon, Via Natural or Artificial Opening Endoscopic, Diagnostic (ICD-10-PCS; principal; 2023-09-04 09:30)
DX: Z12.11 Encounter for screening for malignant neoplasm of colon (principal); D12.2 Benign neoplasm of ascending colon; D12.4 Benign neoplasm of descending colon; K57.30 Diverticulosis of large intestine without perforation or abscess without bleeding; I10 Essential (primary) hypertension; E78.00 Pure hypercholesterolemia, unspecified; G47.30 Sleep apnea, unspecified

== ENCOUNTER 2024-01-21 09:31 | Outpatient (CLI) | payer MEDICARE ==
--- NOTE | 2024-01-21 10:01 | SLEEP CARE CONSULTATION ---
Information from patient questionnaire entered by Christopher Avery. I have reviewed and concur with the information entered by Christopher Avery. This document represents the service I personally performed and the decisions made by me, Bhumi Sosa ARNP. History of Present Illness Service Date and Time: 01/21/2024 09 Previous diagnosis: Moderate, Obstructive Sleep Apnea-Hypopnea Syndrome AHI: 20 Reason for follow up: annual (LAST SEEN 09/2022) Equipment type: CPAP (RESMED Airsense 11, s/u 08/2021) Equipment obtained from: Other ([facility]; getting supplies as needed) Mask style: Full face Backup mask available: No Last cushion change: 3 weeks Prior sleep studies: Yes Year and Where: 07/2018 [facility] Type of Sleep Study: Home sleep study HPI additional information: PIPPA ORR was diagnosed to have moderate, AHI 20, obstructive sleep apnea- hypopnea syndrome and returned today for CPAP therapy annual follow-up. Sleep Study - Results Type of Sleep Study: Home sleep study Prior sleep studies: Yes Year and Where: 07/2018 [facility] CPAP Compliance Data - Data Reviewed with Patient Average duration of nightly device use: 7 HRS 20 MINS Compliance rate %: 73 (01/21/23-01/20/24) Current pressure setting (cmH2O): 7-10 Average residual AHI: 2.4 Subjective Missed days of use due to: reports: mask issues, illness, travel Patient concerns: reports: mask discomfort (brown on face over bridge of nose; resolve quickly). denies: aerophagia, air blowing in eyes, mask leak noise, condensation in mask/hose, nasal congestion, dry mouth, nose, throat, epistaxis Observed to snore while using device: No Current pressure setting perceived as: comfortable On therapy, patient: reports: sleeping better, awakening more refreshed, being more awake and alert during the day, more rested overall. denies: drowsiness while driving Initial [place] Sleepiness Scale score: 14 Current [place] Sleepiness Scale score: 7 (01/21/24) Allergies and Home Medications Known drug allergies: Yes (as listed) Drug allergies reviewed: Yes Home medication list reviewed: Yes (no changes) Allergy and home medication list: Allergies amoxicillin trihydrate * [From Augmentin] Allergy (Verified 01/21/24 09:32) Rash potassium clavulanate * [From Augmentin] Allergy (Verified 01/21/24 09:32) Rash Review of Systems Review of systems same as previous: No (ABCESS ON BACK REMOVED 07/2023) Physical Exam Vital signs obtained and entered by: CHRISTOPHER Limon MA Blood Pressure: 158/83 (LEFT ARM) Cuff size: regular Heart Rate: 62 O2 Saturation: 96 Height: 5 ft 3 in Weight: 164 lb Weight change since last visit: 2 lb loss Body Mass Index: 29.0 BMI Classification: Overweight Impression and Plan 1. Obstructive Sleep Apnea-Hypopnea Syndrome, moderate, with good treatment compliance and good apnea control. On CPAP therapy, the patient has better sleep quality and is more rested overall. Patient has significant improvement of their sleep apnea and is satisfied with current CPAP therapy. She still would like to try different mask because she gets brown on her face from the fullface mask she is currently using.I will ask her DME to do a mask refitting to try other styles of masks. Patient's apnea severity and rationale for treatment to reduce apnea, improve sleep quality and reduce cardiovascular and cerebrovascular events was reviewed. I also reviewed the benefit of consistent device use of CPAP for hypertension, cardiac disease, depression/anxiety. 2. Overweight, unspecified. Currently patients BMI is 29. Obesity increases the risk of apnea, CPAP pressure requirements and overall health risks especially cardiovascular and diabetes. Thus patient is advised to continue to try to lose weight. * Continue auto CPAP pressure at 7-10 cmH2O * Mask refitting * Update supply prescription. * Notify me if snoring with mask or feeling that the pressure is too much or too little * Attempt to lose weight * Call this office if any problems using CPAP * Return for follow up in 12 months, or sooner if concerns arise Counseling Topics: Weight loss health impact Prescriptions: Device supplies Follow up with Sleep Care in: 1 year Visit Type: In Office Time Spent with Patient (minutes): 14 Provider Statement: I spent 100% of the Face to Face Visit with the patient with greater than 50% spent counseling the patient and coordination of care.
[2024-01-21 10:11] VITALS: BP 158/83; O2SAT 96
== END 2024-01-21 09:32 | disposition home or self-care (01) ==
LOC: SC 09:31
PROVIDERS: ATTEND Nurse Practitioner Family
DX: G47.33 Obstructive sleep apnea (adult) (pediatric) (principal); E66.3 Overweight; Z68.29 Body mass index [BMI] 29.0-29.9, adult
CPT/HCPCS: 99212; G0463